=== PATIENT | female | born 2000 | race Two or more races ===

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

== ENCOUNTER → 2025-06-29 | Outpatient (CLI) | payer MEDICAID ==
[2025-06-29 14:32] LABS: Hematocrit 35.9 % (36.0-46.0); Hemoglobin 12.1 g/dL (12.2-16.2); Mean Corpuscular Hemoglobin 31.9 pg (28.0-32.0); Mean Corpuscular Volume 94.7 fL (80.0-100.0); Nucleated Red Blood Cells % 0.0 %
[2025-06-30 16:07] LABS: Chlamydia Trachomatis, NAA Negative (Negative); Neisseria gonorrhoeae, NAA Negative (Negative)
== END | disposition home or self-care (01) ==
LOC: LAB 13:50
PROVIDERS: ATTEND Obstetrics & Gynecology
DX: Z34.83 Encounter for supervision of other normal pregnancy, third trimester (principal); Z11.3 Encounter for screening for infections with a predominantly sexual mode of transmission; Z72.51 High risk heterosexual behavior; Z3A.00 Weeks of gestation of pregnancy not specified
CPT/HCPCS: 36415; 83036; 84144; 84702; 85025; 86703; 86762; 86780; 86850; 86900; 86901; 87086

== ENCOUNTER 2025-07-13 13:44 | Observation (INO) | payer MEDICAID ==
[2025-07-13 15:00] LABS: Hematocrit 34.5 % (36.0-46.0); Hemoglobin 11.7 g/dL (12.2-16.2); Mean Corpuscular Hemoglobin 31.2 pg (28.0-32.0); Mean Corpuscular Volume 92.2 fL (80.0-100.0); Nucleated Red Blood Cells % 0.0 %
--- NOTE | 2025-07-13 15:02 | DVH ---
BIOPHYSICAL PROFILE HISTORY: PIH TECHNIQUE: Multiple transabdominal real-time grayscale sonographic images through the gravid uterus of the fetus with duplex Doppler color flow and M-mode spectral analysis FINDINGS: BIOPHYSICAL PROFILE: breathing score: 2 movement score: 2 tone score: 2 Quantitative SANAZ score: 2 (SANAZ: 12.8 Cm.) Total score: 8 The cervix was not seen Single live fetus in cephalic presentation. heart rate 139 beats per minute. Grade II posterior placenta without previa or abruption IMPRESSION: Biophysical profile score: 8
[2025-07-13 15:15] LABS: Alanine Aminotransferase 11 U/L (7-40); Albumin 3.9 g/dL (3.2-4.8); Anion Gap 9 (5-15); BUN/Creatinine Ratio 13.3 (10.0-20.0); Calcium 8.9 mg/dL (8.7-10.4); Carbon Dioxide 23 mmol/L (20-31); Chloride 106 mmol/L (98-107); Glucose 82 mg/dL (74-106); INR 0.95 (0.9-1.15); Partial Thromboplastin Time 27.3 SEC (24.5-34.5); Potassium 4.1 mmol/L (3.5-5.1); Prothrombin Time 10.1 sec (9.3-11.8); Sodium 138 mmol/L (136-145); Total Protein 6.9 g/dL (5.7-8.2); Uric Acid 3.7 mg/dL (3.1-7.8)
[2025-07-13 15:16] LABS: Bilirubin, Total 0.4 mg/dL (0.2-1.0)
[2025-07-13 15:17] LABS: Alkaline Phosphatase 127 U/L (46-116); Blood Urea Nitrogen 6 mg/dL (9-23)
[2025-07-13] MEDS ORDERED: PREN-96 PO (15:34)
[2025-07-13 16:12] LABS: Urine Protein, UAD TRACE (Negative)
[2025-07-13 16:23] LABS: Protein, Urine 23.7 mg/dL (1-14)
--- NOTE | 2025-07-13 17:49 | DVHDS2 ---
Physician Discharge Progress N Final Diagnosis: ruled out preeclampsia Operations or Procedures: Operations or Procedures 25yo IUP@32.2wks was sent down from Dr. Miramontes's office for rule out preeclampsia/NST/BPP. Denies UCs/LOF/VB/DAVE/vision changes/RUQ pain. Endorses +FM. VSS, normotensive per RN (see CPN) NST reactive per RN BPP 04/29 FKC/PTL/preE precautions reviewed Plan is to f/u in 1 wk with [address] Miramontes consulted, agrees with POC. Laboratory Tests Test 07/13/25 14:46 07/13/25 15:00 Range/Units White Blood Count 7.3 4.4-10.8 10^3/uL Red Blood Count 3.74 L 4.0-5.20 10^6/uL Hemoglobin 11.7 L 12.2-16.2 g/dL Hematocrit 34.5 L 36.0-46.0 % Mean Corpuscular Volume 92.2 80.0-100.0 fL Mean Corpuscular Hemoglobin 31.2 28.0-32.0 pg Mean Corpuscular Hemoglobin Concent 33.8 32.0-36.0 g/dL Red Cell Distribution Width 12.4 11.8-14.3 % Platelet Count 276 140-450 10^3/uL Mean Platelet Volume 7.6 6.9-10.8 fL Neutrophils (%) (Auto) 68.8 37.0-80.0 % Lymphocytes (%) (Auto) 23.7 10.0-50.0 % Monocytes (%) (Auto) 6.4 0.0-12.0 % Eosinophils (%) (Auto) 0.5 0.0-7.0 % Basophils (%) (Auto) 0.6 0.0-2.0 % Neutrophils # (Auto) 5.0 1.6-8.6 10 ^3/uL Lymphocytes # (Auto) 1.7 0.4-5.4 10 ^3/uL Monocytes # (Auto) 0.5 0-1.3 10 ^3/uL Eosinophils # (Auto) 0 0-0.8 10 ^3/uL Basophils # (Auto) 0 0-0.2 10 ^3/uL Nucleated Red Blood Cells 0.0 % Prothrombin Time 10.1 9.3-11.8 sec Prothrombin Time INR 0.95 0.9-1.15 Activated Partial Thromboplast Time 27.3 24.5-34.5 SEC Sodium Level 138 136-145 mmol/L Potassium Level 4.1 3.5-5.1 mmol/L Chloride Level 106 98-107 mmol/L Carbon Dioxide Level 23 20-31 mmol/L Anion Gap 9 5-15 Blood Urea Nitrogen 6 L 9-23 mg/dL Creatinine 0.45 L 0.550-1.02 mg/dL Glomerular Filtration Rate Calc 136 >90 mL/min BUN/Creatinine Ratio 13.3 10.0-20.0 Serum Glucose 82 74-106 mg/dL Uric Acid 3.7 3.1-7.8 mg/dL Calcium Level 8.9 8.7-10.4 mg/dL Total Bilirubin 0.4 0.2-1.0 mg/dL Aspartate Amino Transferase (AST) 18 13-40 U/L Alanine Aminotransferase (ALT) 11 7-40 U/L Alkaline Phosphatase 127 H 46-116 U/L Total Protein 6.9 5.7-8.2 g/dL Albumin 3.9 3.2-4.8 g/dL Urine Color Yellow Yellow Urine Clarity Turbid H Clear Urine pH 6.5 5.0-9.0 Urine Specific [place] 1.022 1.001-1.035 Urine Protein Trace H Negative Urine Ketones Negative Negative Urine Blood Negative Negative /uL Urine Nitrite Negative Negative Urine Bilirubin Negative Negative Urine Urobilinogen Normal Negative mg/dL Urine Leukocyte Esterase 3+ Negative /uL Urine RBC 14 0 - 4 /hpf Urine Microscopic WBC 30 H 0-5 /HPF Urine Squamous Epithelial Cells Mod <5 /hpf Urine Bacteria None seen None Seen /hpf Urine Mucus Few None Seen Urine Creatinine 170.25 H 30.0-125.0 mg/dL Urine Protein/Creatinine Ratio 0.14 Urine Glucose Normal Normal mg/dL Urine Total Protein 23.7 H 1-14 mg/dL Other Interventions Other Interventions [address] [address] Ph: [phone] DIAGNOSTIC IMAGING Diagnostic Imaging Report : [id number] Signed PATIENT: JOSE C SALEH AACCT: [id number] UNIT: [id number] : 2000 LOC: [facility] ROOM / BED: [facility] 11 / A AGE / SEX: 25 / F ADM STATUS: ADM IN SERVICE 1423 ORDERING PHYSICIAN: ANASTACIA MIRAMONTES DO PROCEDURE(s): BPP - BIOPHYSICAL PROFILE REASON: PIH ORDER NUMBER(s): [id number], ACCESSION NUMBER(s): [id number] BIOPHYSICAL PROFILE HISTORY: PI TECHNIQUE: Multiple transabdominal real-time grayscale sonographic images through the gravid uterus of the fetus with duplex Doppler color flow and M-mode spectral analysis FINDINGS: BIOPHYSICAL PROFILE: breathing score: 2 movement score: 2 tone score: 2 Quantitative SANAZ score: 2 (SANAZ: 12.8 Cm.) Total score: 8 The cervix was not seen Single live fetus in cephalic presentation. heart rate 139 beats per minute. Grade II posterior placenta without previa or abruption IMPRESSION: Biophysical profile score: 8 ATED BY: BIMAL MCCOY MD DICTATED DATE/TIME: 07/13/251458 SIGNED BY: BIMAL MCCOY MD SIGNED DATE/TIME: 07/13/259 CC: Condition on Discharge: Stable Disposition: Home Discharge Instructions: Diet: Regular Activity: No Restrictions, As Tolerated Medications: see med list Follow Up Care: Specialist: f/u in 1 wk Discharge Statement: "Patient was advised to return to the ER or call 911 if any headaches, dizziness, shortness of breath, chest pain, abdominal pain, bleeding, fevers, or worsening of medical condition. Patient was counseled about treatment plan, medications, possible side effects, patientverbalized understanding. All questions were answered to the best of my ability. This discharge took greater then 30 minutes in planning, reviewing documentation, counseling the patient, and discussing with other team members." Visit Coding OBGYN Date of Service: Jul 13, 2025 Billing Provider: MARIE POPE CNM TOBACCO GRADER Common Visit Codes: [id number] OBS CARE (HIGH) TOBACCO GRADER Procedure Codes: 78709-88- NON-STRESS TEST MARIE POPE CNM Jul 13, 2025 17:49
== END 2025-07-13 16:47 | disposition home or self-care (01) ==
LOC: UNDOADMOB 13:44 → NUR 13:44 → LDRP 15:16
PROVIDERS: ADMIT Obstetrics & Gynecology; ATTEND Obstetrics & Gynecology
DX: O13.3 Gestational [pregnancy-induced] hypertension without significant proteinuria, third trimester (principal); Z3A.32 32 weeks gestation of pregnancy; Z79.899 Other long term (current) drug therapy; Z98.890 Other specified postprocedural states
CPT/HCPCS: 36415; 59025; 76819; 80053; 81001; 81002; 82570; 84156; 84550; 85025; 85610; 85730; 94760; G0378

== ENCOUNTER 2025-07-20 07:38 | Observation (INO) | payer MEDICAID ==
[~2025-07-20 07:38] MED LIST: PREN-96 PO
[2025-07-20 12:15] LABS: Urine Budding Yeast MANY /hpf (None Seen); Urine Protein, UAD TRACE (Negative); Urine WBC Clumps PRESENT /hpf (None Seen)
[2025-07-20 12:36] LABS: Protein, Urine 16.7 mg/dL (1-14)
--- NOTE | 2025-07-20 13:08 | DVH ---
BIOPHYSICAL PROFILE HISTORY: PIH TECHNIQUE: Multiple real-time grayscale sonographic images through the gravid uterus of the fetus wi th duplex Doppler color flow. FINDINGS: BIOPHYSICAL PROFILE: breathing score: 2 movement score: 2 tone score: 2 Quantitative SANAZ score: 2 Total score: 8 out of 8 Single live intrauterine . Cephalic lie. heart rate 151 beats per minute. Placenta posteriorly positioned. SANAZ 16.3 cm. Cervical length 4.7 cm. IMPRESSION: Biophysical profile score: 8 out of 8
== END 2025-07-20 13:30 | disposition home or self-care (01) ==
LOC: UNDOADMOB 11:00 → LDRP 11:00
PROVIDERS: ADMIT Obstetrics & Gynecology; ATTEND Obstetrics & Gynecology
DX: O13.3 Gestational [pregnancy-induced] hypertension without significant proteinuria, third trimester (principal); Z3A.33 33 weeks gestation of pregnancy; Z79.899 Other long term (current) drug therapy; Z98.890 Other specified postprocedural states
CPT/HCPCS: 59025; 76819; 81001; 81002; 82570; 84156; 94760; G0378

== ENCOUNTER 2025-07-27 07:43 | Observation (INO) | payer MEDICAID ==
[2025-07-27 14:47] LABS: Urine Protein, UAD Negative (Negative)
[2025-07-27 15:11] LABS: Protein, Urine 14.6 mg/dL (1-14)
[2025-07-27 16:11] LABS: Protein, Urine < 6.0 mg/dL (1-14)
[2025-07-27 16:12] LABS: Urine Total Volume, 24 Hours 2200 mL
[2025-07-27 16:13] LABS: 24 Hr. Total Protein, Urine 131.99978 mg/24 Hr (<149.1)
--- NOTE | 2025-07-27 17:11 | DVH ---
BIOPHYSICAL PROFILE HISTORY: PIH TECHNIQUE: FINDINGS: BIOPHYSICAL PROFILE: breathing score: 0 movement score: 2 tone score: 3 Quantitative SANAZ score: 3 (SANAZ: 17.4 cm, MVP: 6.2 cm.) Total score: 6/8 The cervix obscured by head Single live fetus in cephalic presentation. heart rate 144 beats per minute. Posterior Grade 1 placenta without previa or abruption Single live fetus at 34 weeks 2 days Biophysical profile score 6/8 corresponding to an KIM of 09/05/2025 IMPRESSION: 1. Biophysical profile score: 6/8. 2. Possible nuchal cord
[2025-07-28] MEDS ORDERED: NITR-87 PO (15:16)
--- NOTE | 2025-07-29 14:11 | DVHDS2 ---
Physician Discharge Progress N Final Diagnosis: uti Operations or Procedures: Operations or Procedures nst reactive reviwed Condition on Discharge: Good Disposition: Home Discharge Instructions: Diet: Regular, Consistent carbohydrate Activity: No Restrictions, As Tolerated Medications: na Follow Up Care: Specialist: 3d Discharge Statement: "Patient was advised to return to the ER or call 911 if any headaches, dizziness, shortness of breath, chest pain, abdominal pain, bleeding, fevers, or worsening of medical condition. Patient was counseled about treatment plan, medications, possible side effects, patientverbalized understanding. All questions were answered to the best of my ability. This discharge took greater then 30 minutes in planning, reviewing documentation, counseling the patient, and discussing with other team members." Visit Coding OBGYN Date of Service: Jul 27, 2025 Billing Provider: ANASTACIA WALL DO SYSTEMS ADMIN Common Visit Codes: [id number] OBS CARE (HIGH) SYSTEMS ADMIN Procedure Codes: 25363-33- NON-STRESS TEST ANASTACIA WALL DO Jul 29, 2025 14:11
== END 2025-07-27 16:11 | disposition home or self-care (01) ==
LOC: LDRP 14:08 → UNDOADMOB 14:08 → LDRP 14:20
PROVIDERS: ADMIT Obstetrics & Gynecology; ATTEND Obstetrics & Gynecology
DX: O13.3 Gestational [pregnancy-induced] hypertension without significant proteinuria, third trimester (principal); Z3A.34 34 weeks gestation of pregnancy; Z98.890 Other specified postprocedural states
CPT/HCPCS: 59025; 76819; 81001; 81002; 82570; 84156; 94760; G0378

== ENCOUNTER 2025-07-28 14:13 | Observation (INO) | payer MEDICAID ==
--- NOTE | 2025-07-28 14:52 | DVH ---
BIOPHYSICAL PROFILE HISTORY: Repeat BPP 02/27 on 07/27/25 Comparison Study: US BIOPHYSICAL PROFILE on DOS: 07/27/25, US BIOPHYSICAL PROFILE on DOS: 07/20/25, US BIOPHYSICAL PROFILE on DOS: 07/13/25 TECHNIQUE: Multiple real-time grayscale sonographic images through the gravid uterus of the fetus with duplex Doppler color flow and M-mode spectral analysis FINDINGS: BIOPHYSICAL PROFILE: breathing score: 2 movement score: 2 tone score: 2 Quantitative SANAZ score: 16.58 (SANAZ: 16.58 Cm.) Total score: 8 The cervix is not visualized Single live fetus in cephalic presentation. heart rate 128 beats per minute. Grade 2, posterior placenta without previa or abruption IMPRESSION: Biophysical profile score: 8
[2025-07-28] MEDS ORDERED: NITR-87 PO (15:16)
--- NOTE | 2025-07-29 14:40 | DVHDS2 ---
Physician Discharge Progress N Final Diagnosis: r/o pih 34wks Operations or Procedures: Operations or Procedures nst reactive reviwed,sono Condition on Discharge: Good Disposition: Home Discharge Instructions: Diet: Regular Activity: No Restrictions, As Tolerated Medications: na Follow Up Care: Specialist: 3d Discharge Statement: "Patient was advised to return to the ER or call 911 if any headaches, dizziness, shortness of breath, chest pain, abdominal pain, bleeding, fevers, or worsening of medical condition. Patient was counseled about treatment plan, medications, possible side effects, patientverbalized understanding. All questions were answered to the best of my ability. This discharge took greater then 30 minutes in planning, reviewing docume ntation, counseling the patient, and discussing with other team members." Visit Coding OBGYN Date of Service: Jul 28, 2025 Billing Provider: ANASTACIA WALL DO LITHOGRAPHIC PROOFER Common Visit Codes: [id number] OBS CARE (HIGH) LITHOGRAPHIC PROOFER Procedure Codes: 99227-50- NON-STRESS TEST ANASTACIA WALL DO Jul 29, 2025 14:40
== END 2025-07-28 15:30 | disposition home or self-care (01) ==
LOC: LDRP 14:13 → UNDOADMOB 14:13 → LDRP 14:15
PROVIDERS: ADMIT Obstetrics & Gynecology; ATTEND Obstetrics & Gynecology
DX: O13.3 Gestational [pregnancy-induced] hypertension without significant proteinuria, third trimester (principal); Z3A.34 34 weeks gestation of pregnancy; Z98.890 Other specified postprocedural states
CPT/HCPCS: 59025; 76819; 81002; 94760; G0378

== ENCOUNTER 2025-08-03 08:58 | Observation (INO) | payer MEDICAID ==
[~2025-08-03 08:58] MED LIST changes: +NITR-87 PO
--- NOTE | 2025-09-05 12:36 | DVH ---
BIOPHYSICAL PROFILE HISTORY: term TECHNIQUE: Multiple transabdominal real-time grayscale sonographic images through the gravid uterus of the fetus with duplex Doppler color flow and M-mode spectral analysis FINDINGS: BIOPHYSICAL PROFILE: breathing score: 2 movement score: 2 tone score: 2 Quantitative SANAZ score: 2 (SANAZ: 15.8 cm, mvp: 4.5 cm.) Total score: 8/8 The cervix N/V Single live fetus in cephalic presentation. heart rate 148 beats per minute. Posterior Grade 2 placenta without previa or abruption Single live fetus at 40 weeks 0 days Biophysical profile score 8/8 corresponding to an KIM of 09/05/2025. Estimated weight not calculated g IMPRESSION: 1. Biophysical profile score: 8/8 2. FHR: 148 bpm
== END 2025-09-05 12:28 | disposition home or self-care (01) ==
LOC: UNDOADMOB 09-05 10:36 → LDRP 09-05 10:36 → UNDODISOB 09-05 12:28
PROVIDERS: ADMIT Obstetrics & Gynecology; ATTEND Obstetrics & Gynecology
DX: O48.0 Post-term pregnancy (principal); Z3A.40 40 weeks gestation of pregnancy; Z79.899 Other long term (current) drug therapy
CPT/HCPCS: 59025; 76819; 81002; 94760; A4649; G0378

== ENCOUNTER 2025-08-23 14:39 | Outpatient (CLI) | payer MEDICAID ==
[2025-08-23 15:25] LABS: Hematocrit 32.3 % (36.0-46.0); Hemoglobin 10.8 g/dL (12.2-16.2); Mean Corpuscular Hemoglobin 29.7 pg (28.0-32.0); Mean Corpuscular Volume 88.7 fL (80.0-100.0); Nucleated Red Blood Cells % 0.1 %
[2025-08-25 03:07] LABS: Chlamydia Trachomatis, NAA Negative (Negative); Neisseria gonorrhoeae, NAA Negative (Negative)
== END 2025-08-23 17:00 | disposition home or self-care (01) ==
LOC: LAB 14:39
PROVIDERS: ATTEND Obstetrics & Gynecology
DX: Z34.80 Encounter for supervision of other normal pregnancy, unspecified trimester (principal); Z11.3 Encounter for screening for infections with a predominantly sexual mode of transmission; Z72.51 High risk heterosexual behavior; Z3A.00 Weeks of gestation of pregnancy not specified
CPT/HCPCS: 36415; 85025; 86780; 87086; 87340

== ENCOUNTER 2025-09-06 07:52 | Inpatient (IN) | payer MEDICAID ==
[~2025-09-06] VITALS: Ht 165.1 cm; Wt 77.1 kg
[2025-09-06] MEDS ORDERED: LIDOCAINE 2%HCL (LOCAL ANESTH.) INJ 20ML MDV IJ PRN (08:15)
[2025-09-06] MEDS ORDERED: BUTORPHANOL TARTRATE 2 MG/1 ML VIAL IV PRN ×2 (08:15)
[2025-09-06 09:06] LABS: Hematocrit 32.4 % (36.0-46.0); Hemoglobin 10.6 g/dL (12.2-16.2); Mean Corpuscular Hemoglobin 28.8 pg (28.0-32.0); Mean Corpuscular Volume 87.9 fL (80.0-100.0); Nucleated Red Blood Cells % 0.1 %
[2025-09-06 09:20] LABS: INR 0.91 (0.9-1.15); Partial Thromboplastin Time 25.4 SEC (24.5-34.5); Prothrombin Time 9.7 sec (9.3-11.8)
[2025-09-06 09:25] LABS: Alanine Aminotransferase 17 U/L (7-40); Albumin 3.6 g/dL (3.2-4.8); Anion Gap 10 (5-15); BUN/Creatinine Ratio 11.1 (10.0-20.0); Calcium 8.9 mg/dL (8.7-10.4); Carbon Dioxide 21 mmol/L (20-31); Chloride 107 mmol/L (98-107); Glucose 82 mg/dL (74-106); Potassium 4.0 mmol/L (3.5-5.1); Sodium 138 mmol/L (136-145); Total Protein 6.4 g/dL (5.7-8.2)
[2025-09-06] MEDS: LACTATED RINGER'S 1,000 ML IV SCH (09:25)
[2025-09-06 09:26] LABS: Bilirubin, Total 0.4 mg/dL (0.2-1.0)
--- NOTE | 2025-09-06 09:27 | DVHHP2 ---
OB CC & HPI Date Date of Admission: Sep 06, 2025 Patient Identification: : 2 Para: 1 EDC: Sep 05, 2025 EGA: 40.1wks Chief Complaints: Reason for admission: induction of labor Indication for induction: other (term ) History of Present Complaints 25yo IUP@40.1wks presents for IOL for term . Wants an epidural later. Endorses +FM. Denies uterine contractions/LOF/VB/DAVE/vision changes/RUQ pain. PNC: Routine PNC at [facility] OB with Dr. Miramontes, adequate visits, history uncomplicated. GTT was not done by pt, Hg and A1C WNL. GBS neg. Dating 09/05 by US at 24wks. OB hx: x1, uncomplicated in 2022. Past Medical History Cardiac: No pertinent Hx Pulmonary: No pertinent Hx Central Nervous System: No pertinent Hx GI: No pertinent Hx Hemotology/Oncology: No pertinent Hx Hepatobiliary: No pertinent Hx Psychiatric: No pertinent Hx Musculoskeletal: No pertinent Hx Rheumotologic: No pertinent Hx Infectious Disease: No peritnent Hx ENT: No pertinent Hx Renal/: No pertinent Hx Endocrine: No pertinent Hx Dermatology: No pertinent Hx Past Surgical History: Other (Breast augmentation in 2021) OB History OB History Care: Good Care Ultrasounds: Normal mid trimester US Obstetrical Complications: None Medical Complications: None Allergies: Coded Allergies: NO KNOWN ALLERGIES (Unverified , 03/11/12) Home Meds Reported Medications Nitrofurantoin Monohydrate Mac (Macrobid) 100 Mg Cap, 100 MG PO BID for 7 Days, CAP 07/28/25 Vit W/ Ferrous Fumara ( One Daily) Daily Tab, 1 TAB PO DAILY, #90 TAB 3 Refills 07/13/25 Current Medications Current Medications Medications (Trade) Dose Ordered Sig/Jocelynn Route PRN Reason Start Time Stop Time Status Last Admin Lactated Ringer's 1,000 ml @ 125 mls/hr Q8H IV 09/06/25 08:15 Niya Santana (Tucks) 1 pad PRN PRN TOP PERINEAL AREA DISCOMFORT 09/06/25 08:15 Sodium Lauryl Sulfate (Phisoderm) 240 ml PRN PRN TOP PERINEAL AREA DISCOMFORT 09/06/25 08:15 Benzocaine (Dermoplast) 1 applic PRN PRN TOP PERINEAL AREA DISCOMFORT 09/06/25 08:15 Butorphanol Tartrate (Stadol Injection) 1 mg Q4HPRN PRN IV MODERATE PAIN (4-6 PAIN SCALE) 09/06/25 08:15 Butorphanol Tartrate (Stadol Injection) 2 mg Q4HPRN PRN IV SEVERE PAIN (7-10 PAIN SCALE) 09/06/25 08:15 Lidocaine HCl (Xylocaine) 20 ml ONCE PRN IJ PERINEAL AREA DISCOMFORT 09/06/25 08:15 Family & Social History Family/Social History Blood Type: O+ Rubella: immune RPR/VDRL: Negative GBS Status: Negative HBsAG: Negative Review of Systems Constitutional: No symptom reported Ears, Nose, & Throat: No symptom reported Eyes: No symptom reported Pulmonary/Respiratory: No symptom reported Cardiovascular: No symptom reported Gastrointestinal: No symptom reported Genitourinary: No symptom reported Musculoskeletal: No symptom reported Skin: No symptom reported Psychiatric: No symptom reported Endocrine: No symptom reported Hemotologic/Lymphatic: No symptom reported OB Admission Exam Physical Exam Vitals: VSS, see chart EFW 7lbs 2oz vertex in office on 08/30/25 HEENT: TMs Normal, Fontanelles Normal, Nasal Mucosa Normal, Eyes non-injected, Oropharynx Normal, PERRLA, Moist Membranes, EOMI Heart: Rhythm Normal Lungs: Clear Abdomen: Gravid Extremities: Normal Reflexes: Normal Pelvic Exam: SVE by RN: 1/thick/-3 Cervical Dilatation: 1cm Effacement: 0% Station: -3 Membranes: Intact Heart Rate: 130's Accelerations: Accelerations Present Decelerations: No Decelerations Penitentiary Variability: Average (6-25) Contractions on Admission: None OB Plan Plan Admitting Diagnosis: Induction of Labor Plan: Induction Induction Methd: Misoprostol protocol Other Plan: A: 25yo IUP@40.1wks Induction of Labor for term Category I EFM Intact Membranes GBS negative P: Admit to L&D Informed consent obtained Start IOL with PO Cytotec 50mcg PO. Pt agrees with POC. monitoring per order Routine labs ordered Pain mgmt PRN Frequent position changes in and out of bed encouraged Limit SVE unless necessary Intrauterine resuscitation PRN Anticipate Visit Coding OBGYN Date of Service: Sep 06, 2025 Billing Provider: MARIE POPE CNM MANAGER SPECIAL EVENTS Common Visit Codes: [id number] INP/OBS CARE (MOD) MANAGER SPECIAL EVENTS Procedure Codes: 23428-91- NON-STRESS TEST MARIE POPE CNM Sep 06, 2025 09:27
[2025-09-06 09:31] LABS: Alkaline Phosphatase 219 U/L (46-116); Blood Urea Nitrogen 7 mg/dL (9-23)
[2025-09-06] MEDS: WITCH HAZEL-GLYCERIN PAD TOP PRN (09:58)
[2025-09-06] MEDS: PHISODERM TOP SOLN 240ML BTL TOP PRN (09:58)
[2025-09-06] MEDS: DERMOPLAST 60ML BOTTLE TOP PRN (09:59)
[2025-09-06] MEDS: ONDANSETRON HCL 4 MG/2 ML VIAL IV PRN (11:33)
[2025-09-06 11:58] LABS: Urine Protein, UAD TRACE (Negative)
[2025-09-06 11:59] LABS: Amphetamine Screen, Urine Neg (NEGATIVE); Barbiturate Scree,Urine Neg (NEGATIVE); Benzodiazephine Screen, Urine Neg (NEGATIVE); Cocaine Screen, Urine Neg (NEGATIVE)
[2025-09-06 12:00] LABS: Cannabinoid Screen, Urine Neg (NEGATIVE); Opiate Scree,Urine Neg (NEGATIVE); Phencyclidine Screen, Urine Neg (NEGATIVE)
--- NOTE | 2025-09-06 18:37 | DVHPN2 ---
OB Labor Progress Note Date and Time Seen Date Seen: Sep 13, 2025 Time Seen: 16:00 Subjective Patient reports: No new complaints Subjective Comment 25yo IUP@40.1wks, Confirms mild uterine contractions. does not want the epidural yet. Objective Vital Signs VSS WNL see cpn Monitoring Method Monitoring Method: External Heart Rate Heart Rate Baseline: 145 Heart Rate Variability: Moderate Presence of FHR Accelerations: Yes Presence of FHR Decelerations: No Changes in Trends of Patterns: No Are all 5 Components of the FH: Yes Contractions Contractions Frequency: Occasional Duration of Contraction: 70 Contractions Intensity: Moderate Contractions Resting Tone: Relaxed Membranes Membranes: Intact Vaginal Exam Vag Exam Deferred: No Vaginal Exam Dilation: 3 (VE Per RN) Vaginal Exam Effacement: 50 Vaginal Exam Station: -3 Vaginal Exam Presentation: VTX Vaginal Exam Show: Small Medications Medications - Pitocin: No Medications - Pain Medications: PRN Medication - Epidural: No Medication - Other S/P 3 doses of cytotec Lab Results Lab Results Current Medications Medications (Trade) Dose Ordered Sig/Jocelynn Start Time Stop Time Status Last Admin Dose Admin Lactated Ringer's 1,000 ml @ 125 mls/hr Q8H 09/06/25 08:15 09/06/25 17:25 125 MLS/HR Witch Esther (Tucks) 1 pad PRN PRN 09/06/25 08:15 09/06/25 09:58 1 PAD Sodium Lauryl Sulfate (Phisoderm) 240 ml PRN PRN 09/06/25 08:15 09/06/25 09:58 240 ML Benzocaine (Dermoplast) 1 applic PRN PRN 09/06/25 08:15 09/06/25 09:59 1 APPLIC Butorphanol Tartrate (Stadol Injection) 1 mg Q4HPRN PRN 09/06/25 08:15 Butorphanol Tartrate (Stadol Injection) 2 mg Q4HPRN PRN 09/06/25 08:15 Lidocaine HCl (Xylocaine) 20 ml ONCE PRN 09/06/25 08:15 Misoprostol (Cytotec) 50 mcg Q4HPRN PRN 09/06/25 09:30 09/06/25 18:00 50 MCG Oxytocin 500 ml @ 999 mls/hr Q31M ONCE 09/06/25 09:30 09/06/25 10:00 DC Oxytocin 500 ml @ 125 mls/hr Q4H ONCE 09/06/25 10:00 09/06/25 13:59 DC Ondansetron HCl (Zofran) 4 mg Q6HPRN PRN 09/06/25 11:30 09/06/25 11:33 4 MG Laboratory Tests Test 09/06/25 08:45 09/06/25 08:00 Range/Units White Blood Count 7.3 4.4-10.8 10^3/uL Red Blood Count 3.69 L 4.0-5.20 10^6/uL Hemoglobin 10.6 L 12.2-16.2 g/dL Hematocrit 32.4 L 36.0-46.0 % Mean Corpuscular Volume 87.9 80.0-100.0 fL Mean Corpuscular Hemoglobin 28.8 28.0-32.0 pg Mean Corpuscular Hemoglobin Concent 32.7 32.0-36.0 g/dL Red Cell Distribution Width 13.3 11.8-14.3 % Platelet Count 237 140-450 10^3/uL Mean Platelet Volume 8.8 6.9-10.8 fL Neutrophils (%) (Auto) 68.2 37.0-80.0 % Lymphocytes (%) (Auto) 25.9 10.0-50.0 % Monocytes (%) (Auto) 5.0 0.0-12.0 % Eosinophils (%) (Auto) 0.4 0.0-7.0 % Basophils (%) (Auto) 0.5 0.0-2.0 % Neutrophils # (Auto) 5.0 1.6-8.6 10 ^3/uL Lymphocytes # (Auto) 1.9 0.4-5.4 10 ^3/uL Monocytes # (Auto) 0.4 0-1.3 10 ^3/uL Eosinophils # (Auto) 0 0-0.8 10 ^3/uL Basophils # (Auto) 0 0-0.2 10 ^3/uL Nucleated Red Blood Cells 0.1 % Prothrombin Time 9.7 9.3-11.8 sec Prothrombin Time INR 0.91 0.9-1.15 Activated Partial Thromboplast Time 25.4 24.5-34.5 SEC Sodium Level 138 136-145 mmol/L Potassium Level 4.0 3.5-5.1 mmol/L Chloride Level 107 98-107 mmol/L Carbon Dioxide Level 21 20-31 mmol/L Anion Gap 10 5-15 Blood Urea Nitrogen 7 L 9-23 mg/dL Creatinine 0.63 0.550-1.02 mg/dL Glomerular Filtration Rate Calc 125 >90 mL/min BUN/Creatinine Ratio 11.1 10.0-20.0 Serum Glucose 82 74-106 mg/dL Calcium Level 8.9 8.7-10.4 mg/dL Total Bilirubin 0.4 0.2-1.0 mg/dL Aspartate Amino Transferase (AST) 22 13-40 U/L Alanine Aminotransferase (ALT) 17 7-40 U/L Alkaline Phosphatase 219 H 46-116 U/L Total Protein 6.4 5.7-8.2 g/dL Albumin 3.6 3.2-4.8 g/dL Treponema pallidum Antibody Non-reactive Negative Hepatitis C Antibody Negative Negative Urine Color Colorless Yellow Urine Clarity Turbid H Clear Urine pH 6.5 5.0-9.0 Urine Specific [place] 1.020 1.001-1.035 Urine Protein Trace H Negative Urine Ketones Negative Negative Urine Blood Trace H Negative /uL Urine Nitrite Negative Negative Urine Bilirubin Negative Negative Urine Urobilinogen Normal Negative mg/dL Urine Leukocyte Esterase 3+ Negative /uL Urine RBC 5 0 - 4 /hpf Urine Microscopic WBC 160 H 0-5 /HPF Urine Squamous Epithelial Cells Mod <5 /hpf Urine Bacteria Mod H None Seen /hpf Urine Mucus Few None Seen Urine Glucose Normal Normal mg/dL Urine Opiates Screen Neg NEGATIVE Urine Fentanyl Screen Neg NEGATIVE Urine Barbiturates Screen Neg NEGATIVE Urine Phencyclidine Screen Neg NEGATIVE Urine Amphetamines Screen Neg NEGATIVE Urine Benzodiazepines Screen Neg NEGATIVE Urine Cocaine Screen Neg NEGATIVE Urine Cannabinoids Screen Neg NEGATIVE Assessment Assessment A: 25yo IUP@40.1wks Induction of Labor for term Category I EFM Intact Membranes GBS negative Plan Plan P: Continue with IOL with PO Cytotec 50mcg PO. Pt agrees with POC. monitoring per order Pain mgmt PRN Frequent position changes in and out of bed encouraged Limit SVE unless necessary Intrauterine resuscitation PRN Anticipate Plan discussed with: Patient Visit Coding OBGYN Date of Service: Sep 06, 2025 Billing Provider: KALAYDJIAN,AZADUHI CNM DEVELOPING MACHINE TENDER Common Visit Codes: [id number] INP/OBS CARE(MOD) AGUILAR HUFF STUDENTMDW Sep 06, 2025 18:37
[2025-09-06] MEDS: NALOXONE HCL 0.4 MG/ML VIAL IV ONE (19:45)
[2025-09-06] MEDS: LACTATED RINGER'S 1,000 ML IV ONE (22:30)
[2025-09-06] MEDS: fentaNYL CITRATE 100 MCG/2 ML VL IV ONE (22:30)
[2025-09-06] MEDS: ROPIVACAINE HCL 100 ML ONE (22:36)
--- NOTE | 2025-09-06 22:42 | EPIDURAL ---
Anesthesia Procedural Note - Epidural Informed consent obtained?: Yes Medication Administered: Fentanyl 100 mcg Sterile prept drape: Yes Spinal level of insertion: L4-L5 Test dose of lidocaine & Epine: Negative Infusion started: Yes Start time: 21:40 End time: 22:25 Procedure description Procedure description: Called for labor analgesia. History taken, patient examined, chart reviewed. Patient is here for induction of labor. She had an epidural for her last delivery which was unilateral and she was very anxious about that happening again. I reassured her that if her epidural was not functioning properly, I would replace it. Informed consent for CSE obtained at 2140. Upon examining her back, there is some degree of curvature of the spine. Time out done at 2148 (BP 130/62 HR 90 spO2 98). Sitting position, sterile prep and drape. L4-5 space infiltrated with 1% lido. Attempt at epidural needle placement was meet with the patient reporting pain to the right. Additional 1% lido was infiltrated about half an inch to the left and epidural needle was placed with JAIR at 6cm. 25G spinal needle +clear CSF at 2205 (BP 131/83 HR 86 spO2 99). 15 mcg fentanyl given IT. Epidural catheter placed and secured at 12cm. Aspiration and test dose (3cc 1.5% lido with epi) negative at 2206 (BP 118/63 HR 87 spO2 99). 85 mcg fentanyl given via epidural catheter at 2208. Patient reports good pain relief. 0.2% ropivacaine infusion verified with RN and started at 2218 (BP 115/79 HR 75 spO2 99). Will follow as needed. MEGA ABEBE MD Sep 06, 2025 22:42
[2025-09-06] MEDS ORDERED: TERBUTALINE SULFATE 1 MG/ML 1ML VIAL SC PRN (22:45)
--- NOTE | 2025-09-06 23:12 | DVHPN2 ---
OB Labor Progress Note Date and Time Seen Date Seen: Sep 06, 2025 Time Seen: 21:00 Subjective Patient reports: No new complaints Subjective Comment 25yo IUP@40.1wks, Confirms mild uterine contractions, would like epidural at this time. Objective Vital Signs VSS wnl see cpn Monitoring Method Monitoring Method: External Heart Rate Heart Rate Baseline: 140 Heart Rate Variability: Moderate Presence of FHR Accelerations: Yes Presence of FHR Decelerations: No Changes in Trends of Patterns: No Are all 5 Components of the FH: Yes Contractions Contractions Frequency: Occasional Duration of Contraction: 60 Contractions Intensity: Mild Contractions Resting Tone: Relaxed Membranes Membranes: Intact Vaginal Exam Vag Exam Deferred: No Vaginal Exam Dilation: 3 Vaginal Exam Effacement: 50 Vaginal Exam Station: -2 Vaginal Exam Presentation: VTX Vaginal Exam Show: None Medications Medications - Pitocin: No Medication - Epidural: No Medication - Other See med sheet Lab Results Lab Results Vital Signs Date Time Temp Pulse Resp B/P (MAP) Pulse Ox O2 Delivery O2 Flow Rate FiO2 09/06/25 22:30 118/63 Current Medications Medications (Trade) Dose Ordered Sig/Jocelynn Start Time Stop Time Status Last Admin Dose Admin Lactated Ringer's 1,000 ml @ 125 mls/hr Q8H 09/06/25 08:15 09/06/25 22:30 125 MLS/HR Niya Santana (Tucks) 1 pad PRN PRN 09/06/25 08:15 09/06/25 09:58 1 PAD Sodium Lauryl Sulfate (Phisoderm) 240 ml PRN PRN 09/06/25 08:15 09/06/25 09:58 240 ML Benzocaine (Dermoplast) 1 applic PRN PRN 09/06/25 08:15 09/06/25 09:59 1 APPLIC Butorphanol Tartrate (Stadol Injection) 1 mg Q4HPRN PRN 09/06/25 08:15 Butorphanol Tartrate (Stadol Injection) 2 mg Q4HPRN PRN 09/06/25 08:15 Lidocaine HCl (Xylocaine) 20 ml ONCE PRN 09/06/25 08:15 Misoprostol (Cytotec) 50 mcg Q4HPRN PRN 09/06/25 09:30 09/06/25 18:00 50 MCG Oxytocin 500 ml @ 999 mls/hr Q31M ONCE 09/06/25 09:30 09/06/25 10:00 DC Oxytocin 500 ml @ 125 mls/hr Q4H ONCE 09/06/25 10:00 09/06/25 13:59 DC Ondansetron HCl (Zofran) 4 mg Q6HPRN PRN 09/06/25 11:30 09/06/25 11:33 4 MG Naloxone HCl (Narcan) 0.2 mg PRN ONCE 09/06/25 19:45 09/06/25 19:52 DC Ephedrine Sulfate (ePHEDrine SULFATE) 10 mg PRN ONCE 09/06/25 19:45 09/06/25 19:52 DC Fentanyl Citrate 100 mcg ONCE ONCE 09/06/25 19:45 09/06/25 19:52 DC 09/06/25 22:30 100 MCG Lidocaine HCl (Xylocaine-Pf 2% Injection) 10 ml ONCE ONCE 09/06/25 19:45 09/06/25 19:52 DC Lactated Ringer's 1,000 ml @ 1,000 mls/hr Q1H ONCE 09/06/25 19:45 09/06/25 20:44 DC 09/06/25 22:30 1,000 MLS/HR Oxytocin 1,000 ml @ 6 ml/hr Q24H 09/06/25 22:45 Terbutaline Sulfate (Brethine Inj) 0.25 mg ONCE PRN 09/06/25 22:45 Laboratory Tests Test 09/06/25 08:45 09/06/25 08:00 Range/Units White Blood Count 7.3 4.4-10.8 10^3/uL Red Blood Count 3.69 L 4.0-5.20 10^6/uL Hemoglobin 10.6 L 12.2-16.2 g/dL Hematocrit 32.4 L 36.0-46.0 % Mean Corpuscular Volume 87.9 80.0-100.0 fL Mean Corpuscular Hemoglobin 28.8 28.0-32.0 pg Mean Corpuscular Hemoglobin Concent 32.7 32.0-36.0 g/dL Red Cell Distribution Width 13.3 11.8-14.3 % Platelet Count 237 140-450 10^3/uL Mean Platelet Volume 8.8 6.9-10.8 fL Neutrophils (%) (Auto) 68.2 37.0-80.0 % Lymphocytes (%) (Auto) 25.9 10.0-50.0 % Monocytes (%) (Auto) 5.0 0.0-12.0 % Eosinophils (%) (Auto) 0.4 0.0-7.0 % Basophils (%) (Auto) 0.5 0.0-2.0 % Neutrophils # (Auto) 5.0 1.6-8.6 10 ^3/uL Lymphocytes # (Auto) 1.9 0.4-5.4 10 ^3/uL Monocytes # (Auto) 0.4 0-1.3 10 ^3/uL Eosinophils # (Auto) 0 0-0.8 10 ^3/uL Basophils # (Auto) 0 0-0.2 10 ^3/uL Nucleated Red Blood Cells 0.1 % Prothrombin Time 9.7 9.3-11.8 sec Prothrombin Time INR 0.91 0.9-1.15 Activated Partial Thromboplast Time 25.4 24.5-34.5 SEC Sodium Level 138 136-145 mmol/L Potassium Level 4.0 3.5-5.1 mmol/L Chloride Level 107 98-107 mmol/L Carbon Dioxide Level 21 20-31 mmol/L Anion Gap 10 5-15 Blood Urea Nitrogen 7 L 9-23 mg/dL Creatinine 0.63 0.550-1.02 mg/dL Glomerular Filtration Rate Calc 125 >90 mL/min BUN/Creatinine Ratio 11.1 10.0-20.0 Serum Glucose 82 74-106 mg/dL Calcium Level 8.9 8.7-10.4 mg/dL Total Bilirubin 0.4 0.2-1.0 mg/dL Aspartate Amino Transferase (AST) 22 13-40 U/L Alanine Aminotransferase (ALT) 17 7-40 U/L Alkaline Phosphatase 219 H 46-116 U/L Total Protein 6.4 5.7-8.2 g/dL Albumin 3.6 3.2-4.8 g/dL Treponema pallidum Antibody Non-reactive Negative Hepatitis C Antibody Negative Negative Urine Color Colorless Yellow Urine Clarity Turbid H Clear Urine pH 6.5 5.0-9.0 Urine Specific [place] 1.020 1.001-1.035 Urine Protein Trace H Negative Urine Ketones Negative Negative Urine Blood Trace H Negative /uL Urine Nitrite Negative Negative Urine Bilirubin Negative Negative Urine Urobilinogen Normal Negative mg/dL Urine Leukocyte Esterase 3+ Negative /uL Urine RBC 5 0 - 4 /hpf Urine Microscopic WBC 160 H 0-5 /HPF Urine Squamous Epithelial Cells Mod <5 /hpf Urine Bacteria Mod H None Seen /hpf Urine Mucus Few None Seen Urine Glucose Normal Normal mg/dL Urine Opiates Screen Neg NEGATIVE Urine Fentanyl Screen Neg NEGATIVE Urine Barbiturates Screen Neg NEGATIVE Urine Phencyclidine Screen Neg NEGATIVE Urine Amphetamines Screen Neg NEGATIVE Urine Benzodiazepines Screen Neg NEGATIVE Urine Cocaine Screen Neg NEGATIVE Urine Cannabinoids Screen Neg NEGATIVE Assessment Assessment A: 25yo IUP@40.1wks Induction of Labor for term Category I EFM Intact Membranes GBS negative Plan Plan P: Start IV pitocin per order. monitoring per order Frequent position changes in bed encouraged Limit SVE unless necessary Intrauterine resuscitation PRN Anticipate Plan discussed with: Patient, Spouse Visit Coding OBGYN Date of Service: Sep 06, 2025 Billing Provider: MARIE POPE CNM [employer] Common Visit Codes: [id number] INP/OBS CARE(MOD) [employer] Procedure Codes: 23219-93- NON-STRESS TEST AGUILAR HUFF Sep 06, 2025 23:12
--- NOTE | 2025-09-06 23:56 | DVHPN2 ---
CNM Labor Progress Note Date and Time Seen Date Seen: Sep 06, 2025 Time Seen: 23:43 Subjective Patient reports: Feels better Subjective Comment Pt is comfortable with epidural, denies pain. Pt consents to Cooks CRB after discussion. Objective Vital Signs VSS, see CPN Monitoring Method Monitoring Method: External Heart Rate Heart Rate Baseline: 130 Heart Rate Variability: Moderate Presence of FHR Accelerations: Yes Presence of FHR Decelerations: No Changes in Trends of Patterns: No Are all 5 Components of the FH: Yes Contractions Contractions Frequency: Other (q2) Duration of Contraction: 70 Contractions Intensity: Moderate Contractions Resting Tone: Relaxed Membranes Membranes: Intact Vaginal Exam Vag Exam Deferred: No (cooks CRB placed by Opal PERRY with 60/60ml sterile fluid) Vaginal Exam Dilation: 4 Vaginal Exam Effacement: 50 Vaginal Exam Station: -2 Vaginal Exam Presentation: VTX Vaginal Exam Show: Moderate Medications Medications - Pitocin: No Medication - Epidural: Yes Medication - Other see med list Lab Results Lab Results Vital Signs Date Time Temp Pulse Resp B/P (MAP) Pulse Ox O2 Delivery O2 Flow Rate FiO2 09/06/25 22:30 118/63 Current Medications Medications (Trade) Dose Ordered Sig/Jocelynn Start Time Stop Time Status Last Admin Dose Admin Lactated Ringer's 1,000 ml @ 125 mls/hr Q8H 09/06/25 08:15 09/06/25 22:30 125 MLS/HR Witch Esther (Tucks) 1 pad PRN PRN 09/06/25 08:15 09/06/25 09:58 1 PAD Sodium Lauryl Sulfate (Phisoderm) 240 ml PRN PRN 09/06/25 08:15 09/06/25 09:58 240 ML Benzocaine (Dermoplast) 1 applic PRN PRN 09/06/25 08:15 09/06/25 09:59 1 APPLIC Butorphanol Tartrate (Stadol Injection) 1 mg Q4HPRN PRN 09/06/25 08:15 Butorphanol Tartrate (Stadol Injection) 2 mg Q4HPRN PRN 09/06/25 08:15 Lidocaine HCl (Xylocaine) 20 ml ONCE PRN 09/06/25 08:15 Misoprostol (Cytotec) 50 mcg Q4HPRN PRN 09/06/25 09:30 09/06/25 18:00 50 MCG Oxytocin 500 ml @ 999 mls/hr Q31M ONCE 09/06/25 09:30 09/06/25 10:00 DC Oxytocin 500 ml @ 125 mls/hr Q4H ONCE 09/06/25 10:00 09/06/25 13:59 DC Ondansetron HCl (Zofran) 4 mg Q6HPRN PRN 09/06/25 11:30 09/06/25 11:33 4 MG Naloxone HCl (Narcan) 0.2 mg PRN ONCE 09/06/25 19:45 09/06/25 19:52 DC Ephedrine Sulfate (ePHEDrine SULFATE) 10 mg PRN ONCE 09/06/25 19:45 09/06/25 19:52 DC Fentanyl Citrate 100 mcg ONCE ONCE 09/06/25 19:45 09/06/25 19:52 DC 09/06/25 22:30 100 MCG Lidocaine HCl (Xylocaine-Pf 2% Injection) 10 ml ONCE ONCE 09/06/25 19:45 09/06/25 19:52 DC Lactated Ringer's 1,000 ml @ 1,000 mls/hr Q1H ONCE 09/06/25 19:45 09/06/25 20:44 DC 09/06/25 22:30 1,000 MLS/HR Oxytocin 1,000 ml @ 6 ml/hr Q24H 09/06/25 22:45 Terbutaline Sulfate (Brethine Inj) 0.25 mg ONCE PRN 09/06/25 22:45 Laboratory Tests Test 09/06/25 08:45 09/06/25 08:00 Range/Units White Blood Count 7.3 4.4-10.8 10^3/uL Red Blood Count 3.69 L 4.0-5.20 10^6/uL Hemoglobin 10.6 L 12.2-16.2 g/dL Hematocrit 32.4 L 36.0-46.0 % Mean Corpuscular Volume 87.9 80.0-100.0 fL Mean Corpuscular Hemoglobin 28.8 28.0-32.0 pg Mean Corpuscular Hemoglobin Concent 32.7 32.0-36.0 g/dL Red Cell Distribution Width 13.3 11.8-14.3 % Platelet Count 237 140-450 10^3/uL Mean Platelet Volume 8.8 6.9-10.8 fL Neutrophils (%) (Auto) 68.2 37.0-80.0 % Lymphocytes (%) (Auto) 25.9 10.0-50.0 % Monocytes (%) (Auto) 5.0 0.0-12.0 % Eosinophils (%) (Auto) 0.4 0.0-7.0 % Basophils (%) (Auto) 0.5 0.0-2.0 % Neutrophils # (Auto) 5.0 1.6-8.6 10 ^3/uL Lymphocytes # (Auto) 1.9 0.4-5.4 10 ^3/uL Monocytes # (Auto) 0.4 0-1.3 10 ^3/uL Eosinophils # (Auto) 0 0-0.8 10 ^3/uL Basophils # (Auto) 0 0-0.2 10 ^3/uL Nucleated Red Blood Cells 0.1 % Prothrombin Time 9.7 9.3-11.8 sec Prothrombin Time INR 0.91 0.9-1.15 Activated Partial Thromboplast Time 25.4 24.5-34.5 SEC Sodium Level 138 136-145 mmol/L Potassium Level 4.0 3.5-5.1 mmol/L Chloride Level 107 98-107 mmol/L Carbon Dioxide Level 21 20-31 mmol/L Anion Gap 10 5-15 Blood Urea Nitrogen 7 L 9-23 mg/dL Creatinine 0.63 0.550-1.02 mg/dL Glomerular Filtration Rate Calc 125 >90 mL/min BUN/Creatinine Ratio 11.1 10.0-20.0 Serum Glucose 82 74-106 mg/dL Calcium Level 8.9 8.7-10.4 mg/dL Total Bilirubin 0.4 0.2-1.0 mg/dL Aspartate Amino Transferase (AST) 22 13-40 U/L Alanine Aminotransferase (ALT) 17 7-40 U/L Alkaline Phosphatase 219 H 46-116 U/L Total Protein 6.4 5.7-8.2 g/dL Albumin 3.6 3.2-4.8 g/dL Treponema pallidum Antibody Non-reactive Negative Hepatitis C Antibody Negative Negative Urine Color Colorless Yellow Urine Clarity Turbid H Clear Urine pH 6.5 5.0-9.0 Urine Specific [place] 1.020 1.001-1.035 Urine Protein Trace H Negative Urine Ketones Negative Negative Urine Blood Trace H Negative /uL Urine Nitrite Negative Negative Urine Bilirubin Negative Negative Urine Urobilinogen Normal Negative mg/dL Urine Leukocyte Esterase 3+ Negative /uL Urine RBC 5 0 - 4 /hpf Urine Microscopic WBC 160 H 0-5 /HPF Urine Squamous Epithelial Cells Mod <5 /hpf Urine Bacteria Mod H None Seen /hpf Urine Mucus Few None Seen Urine Glucose Normal Normal mg/dL Urine Opiates Screen Neg NEGATIVE Urine Fentanyl Screen Neg NEGATIVE Urine Barbiturates Screen Neg NEGATIVE Urine Phencyclidine Screen Neg NEGATIVE Urine Amphetamines Screen Neg NEGATIVE Urine Benzodiazepines Screen Neg NEGATIVE Urine Cocaine Screen Neg NEGATIVE Urine Cannabinoids Screen Neg NEGATIVE Assessment Assessment A: 25yo IUP@40.1wks Induction of Labor for term Category I EFM Intact Membranes GBS negative Plan Plan Start IV pitocin per order when UCs space out monitoring per order Frequent position changes in bed encouraged Limit SVE unless necessary Intrauterine resuscitation PRN Anticipate Plan discussed with: Patient, Spouse, Other (family) Visit Coding OBGYN Date of Service: Sep 06, 2025 Billing Provider: MARIE POPE CNM [employer] Common Visit Codes: [id number] INP/OBS CARE(MOD) MARIE POPE CNM Sep 06, 2025 23:56
[2025-09-07] MEDS: LIDOCAINE HCL 2 %PF INJ 10ML AMP IJ ONE (00:12)
[2025-09-07] MEDS: LACT. RINGERS/OXYTOCIN 20UNITS 1,000 ML IV SCH (02:18)
[2025-09-07] MEDS: METHYLERGONOVINE MALEATE 0.2 MG/ML AMP IM ONE ×2 (05:01)
[2025-09-07] MEDS: LACT. RINGERS/OXYTOCIN 20UNITS 500 ML IV ONE ×4 (06:10→19:47)
[2025-09-07] MEDS: ceFAZolin 2 GM/D5W50ml 50 ML IV ONE (06:14)
--- NOTE | 2025-09-07 06:29 | LDN2 ---
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 Modified ritgen manuever done to deliver head due to deceleration. APGARS 9/9. IDALIA and loose Nuchal x1 with cord reduced before . Cord clamped and cut after 1 minute delay. handed to mom/RN team. Cord blood sent. Intact 3-vessel cord placenta delivered spontaneously, Marc. Fundus boggy at U, moderate lochia, fundal massage done. Manual sweep done and uterus cleared of all clots. IM methergine given. Ancef 2g IVPB x1. Patient had epidural. Cervix/vagina inspected and right labial laceration present which was repaired with 3-0 vicryl suture. VSS. Fundus firm at U, midline, light lochia. QBL 450ml. Patient to care and baby to couplet care. Visit Coding OBGYN Date of Service: Sep 07, 2025 Billing Provider: MARIE POPE CNM [employer] MANAGER Common Visit Codes: PROCEDURE ONLY CASH MANAGER Procedure Codes: [id number] DEL INCLUDING AGUILAR HUFF STUDENTMDW Sep 07, 2025 06:29
[2025-09-07] MEDS ORDERED: ONDANSETRON ODT 4 MG TAB PO PRN (06:30)
[2025-09-07 07:00] VITALS: BP 109/59; PULSE 58; RESP 16; TEMP 98; O2SAT 98
[2025-09-07] MEDS: ACETAMINOPHEN 325 MG TAB PO PRN (07:02)
[2025-09-07] MEDS ORDERED: ACETAMINOPHEN IV 1000 MG/100ML (10MG/ML) IV PRN (08:00)
[2025-09-07] MEDS: ONDANSETRON HCL 4 MG/2 ML VIAL IV PRN (08:29)
[2025-09-07 11:00] VITALS: BP 107/72; PULSE 59; RESP 17; TEMP 97.9; O2SAT 96
[2025-09-07] MEDS: IBUPROFEN 600 MG TAB PO PRN (11:17)
[2025-09-07 14:43] VITALS: BP 104/51; PULSE 66; RESP 16; TEMP 98.1; O2SAT 96
[2025-09-07 19:00] VITALS: BP 107/58; PULSE 63; RESP 16; TEMP 97.9; O2SAT 97
[2025-09-07] MEDS ORDERED: DOCU-265 PO (20:53)
[2025-09-07] MEDS ORDERED: IBU600T PO (20:53)
[2025-09-07] MEDS ORDERED: PREN-96 PO (20:53)
[2025-09-07] MEDS: DOCUSATE SOD 100 MG CAP PO SCH (22:11)
[2025-09-07 22:30] VITALS: BP 105/53; PULSE 67; RESP 16; TEMP 97.9; O2SAT 97
[2025-09-08 03:00] VITALS: BP 108/54; PULSE 77; RESP 16; TEMP 98.1; O2SAT 98
[2025-09-08 07:00] VITALS: BP 106/63; PULSE 71; RESP 16; TEMP 97.9; O2SAT 97
--- NOTE | 2025-09-08 07:06 | DVHDS2 ---
Obstetrics Discharge Summary Obstetrics Discharge Summary Date of Admission: Sep 06, 2025 Date of Discharge: Sep 08, 2025 Reason For Admission: Induction of Labor Procedures: NST Intrapartum Procedures: Spontaneous vaginal deliv Procedures: Hct/date: (09/08/25), Hgb/date: (09/08/25) Operative Complicat: Laceration (right labial) Discharge Diagnosis: Term -Delivered Discharge Information: Activity ( as tolerated, no heavy lifting and nothing in the vagina for 6 weeks), Diet (Regular), Medications (Rx sent to pharmacy), Instructions ( precautions and preeclampsia warning signs reviewed), Discharge to (Home), Accompanied by (PARTNER), Discarge date (09/08/2025) Visit Coding OBGYN Date of Service: Sep 08, 2025 Billing Provider: MARIE POPE CNM [employer] Common Visit Codes: [id number] DISCH DAY <30MIN AGUILAR HUFF STUDENTMDW Sep 08, 2025 07:06
--- NOTE | 2025-09-08 07:09 | DVHPN2 ---
Progress Note Date Seen: Sep 08, 2025 Subjective S: bleeding is less, eating food without issues, denies lightheaded/dizziness, pain well controlled with oral medications, no concerns with urinating, passing flatus, no BM yet, ambulating well, bottle feeding well. vital signs VSS See cpn Vital Sign Date Time Temp Pulse Resp B/P (MAP) Pulse Ox O2 Delivery O2 Flow Rate FiO2 09/08/25 03:00 98.1 77 16 108/54 (72) 98 98.1 09/07/25 18:44 Room Air 09/07/25 08:44 0.0 Total Intake and Output 09/07/25 09/07/25 09/08/25 14:59 22:59 06:59 Output Total 1250 ml 950 ml Balance -1250 ml -950 ml medications Current Medications Medications Dose Ordered Sig/Jocelynn Route Start Time Stop Time Status Last Admin Dose Admin Niya Santana 1 pad PRN PRN TOP 09/06/25 08:15 09/06/25 09:58 1 PAD Sodium Lauryl Sulfate 240 ml PRN PRN TOP 09/06/25 08:15 09/06/25 09:58 240 ML Benzocaine 1 applic PRN PRN TOP 09/06/25 08:15 09/06/25 09:59 1 APPLIC Butorphanol Tartrate 1 mg Q4HPRN PRN IV 09/06/25 08:15 Cancel Butorphanol Tartrate 2 mg Q4HPRN PRN IV 09/06/25 08:15 Cancel Lidocaine HCl 20 ml ONCE PRN IJ 09/06/25 08:15 Cancel Terbutaline Sulfate 0.25 mg ONCE PRN SC 09/06/25 22:45 Cancel Ibuprofen 600 mg Q6HP PRN PO 09/07/25 06:30 09/08/25 03:37 600 MG Acetaminophen 650 mg Q4HP PRN PO 09/07/25 06:30 09/07/25 16:00 650 MG Ondansetron HCl 4 mg Q4HPRN PRN PO 09/07/25 06:30 Hold Docusate Sodium 200 mg HS PO 09/07/25 22:00 09/07/25 22:11 200 MG Ondansetron HCl 4 mg Q4HPRN PRN IV 09/07/25 08:00 09/07/25 08:29 4 MG laboratory and microbiology Laboratory Tests 09/06/25 08:45 Test 09/06/25 08:45 Range/Units Serum Glucose 82 74-106 mg/dL Objective O: VSS Chest: heart sounds normal and lung sounds clear bilaterally Abd: soft, non-tender, fundus at U/firm/midline, active bowel sounds, no rebound or guarding Perineum: sutures intact, edges well approximated, mild edema noted, no erythema noted Ext: Non-tender, No edema, 2+ BLE DTRs Lochia: minimal See lab result Problems(with codes): (1) (normal spontaneous vaginal delivery) (2) Obstetric labial laceration, delivered, current hospitalization Assessment/Plan A: 25yo now PPD#1 s/p Rh+ Rubella Immune bottle feeding well Pain control with PO medications Bowel regimen P: D/C home today Rx sent to pharmacy precautions and preeclampsia warning signs reviewed F/U with [facility] OB office in 2 weeks Plan discussed with: Patient, Spouse, Other (family) Fluid Accumulation (N/A): N/A Reduced Die Engraver Strength (Non-Sev: N/A AGUILAR HUFF STUDENTMDW Sep 08, 2025 07:09
[2025-09-08 07:59] LABS: Hematocrit 28.2 % (36.0-46.0); Hemoglobin 9.2 g/dL (12.2-16.2); Mean Corpuscular Hemoglobin 29.0 pg (28.0-32.0); Mean Corpuscular Volume 88.4 fL (80.0-100.0); Nucleated Red Blood Cells % 0.1 %
[2025-09-08] MEDS ORDERED: TETANUS-DIPTH-ACEL PERTUSSIS 0.5ML SYR Tdap IM ONE (09:00)
[2025-09-08] MEDS ORDERED: FER325T PO (09:08)
[2025-09-09] MEDS ORDERED: NITR-87 PO (03:58)
== END 2025-09-08 10:15 | disposition home or self-care (01) | DRG 560 ==
LOC: LDRP 07:52
PROVIDERS: ADMIT Obstetrics & Gynecology; ATTEND Obstetrics & Gynecology
PROC: 3E0R3BZ Introduction of Anesthetic Agent into Spinal Canal, Percutaneous Approach (ICD-10-PCS; 2025-09-06)
PROC: 00HU33Z Insertion of Infusion Device into Spinal Canal, Percutaneous Approach (ICD-10-PCS; 2025-09-06)
PROC: 10E0XZZ Delivery of Products of Conception, External Approach (ICD-10-PCS; principal; 2025-09-07)
PROC: 0HQ9XZZ Repair Perineum Skin, External Approach (ICD-10-PCS; 2025-09-07)
DX: O48.0 Post-term pregnancy (principal); Z37.0 Single live birth; O69.81X0 Labor and delivery complicated by cord around neck, without compression, not applicable or unspecified; O70.0 First degree perineal laceration during delivery; Z3A.40 40 weeks gestation of pregnancy
CPT/HCPCS: 36415; 59409; 62282; 80053; 80307; 81001; 85025; 85610; 85730; 86780; 86803; 86850; 86900; 86901; 90471; 94760; 94762; 96360; 96361; 96365; 96366; 96374; 96375; G0378; J0131; J2405; J2590

== ENCOUNTER 2025-09-09 01:07 | Emergency (ER) | payer MEDICAID ==
[~2025-09-09] VITALS: Ht 165.1 cm; Wt 68.0 kg
[~2025-09-09 01:07] MED LIST changes: +DOCU-265 PO; +FER325T PO; +IBU600T PO; -NITR-87 PO
--- NOTE | 2025-09-09 01:33 | ED.PDOC ---
History of Present Illness HPI Comments 25-year-old female who came to ER for headaches. Patient has recently given 12 hours ago via vaginal delivery with the epidural anesthesia. After giving patient has been experiencing severe headaches associated nausea. Patient took Tylenol and caffeine but offered no relief of the headaches. REVIEW OF SYSTEMS: General: No fever, no chills, or fatigue HEENT: No sore throat, no earache, no congestion, no neck pain. Cardiac: No chest pain. No palpitations. Lungs: No shortness of breath, no cough. GI: (+) nausea, no vomiting, no diarrhea, no constipation, no abdominal pain : No dysuria, frequency, or urgency. No hematuria. Musculoskeletal: No joint pain , no joint swelling, no extremity edema. Skin: No rash, no itching. Neuro: (+) headache, no dizziness, no weakness EXAM: General: Awake, alert and oriented. No acute distress. Skin: Skin in warm, dry and intact. Appropriate color for ethnicity. HEENT: The head is normocephalic and atraumatic. Conjunctivae are clear without exudates or hemorrhage. Sclera is non-icteric. EOM are intact. No signs of nystagmus. Eyelids are normal in appearance without swelling or lesions. Oral mucosa is pink and moist. PERRLA Neck: The neck is supple with normal range of motion. No JVD. Cardiac: Heart rate and rhythm are normal. No murmurs, gallops, or rubs are auscultated. Respiratory: No signs of respiratory distress. Lung sounds are clear in all lobes bilaterally without rales, rhonchi, or wheezes. Abdominal: Abdomen is soft, non-tender without distention. Bowel sounds are present and normoactive in all four quadrants. Extremities: Upper and lower extremities are atraumatic in appearance without deformity or edema. Neurological: The patient is awake, alert and oriented to person, place, and time with normal speech. Speech is clear. There is no facial asymmetry. Psychiatric: Appropriate mood and affect. Good judgement and insight Chief Complaint: Headache Time Seen by MD: 01:32 Primary Care Provider: TRINA SALCIDO Reviewed Notes: Nurses Notes Allergies: Coded Allergies: NO KNOWN ALLERGIES (Unverified , 03/11/12) Home Meds Active Scripts Ferrous Sulfate (FERROUS SULFATE) 325 Mg Tb, 1 TAB PO DAILY, #30 TAB 3 Refills Prov:MARIE POPE 09/08/25 Ibuprofen Micronized (MOTRIN TABLET) 600 Mg Tb, 600 MG PO Q6HP PRN for 20 Days, #80 TAB Prov:MARIE POPE 09/07/25 Docusate Sodium (Docusate Sodium) 100 Mg Cap, 200 MG PO HS PRN for 30 Days, #60 CAP 2 Refills Prov:MARIE POPE 09/07/25 Vit W/ Ferrous Fumara ( One Daily) Daily Tab, 1 TAB PO DAILY, #90 TAB 3 Refills Prov:MARIE POPE [facility] 09/07/25 Discontinued Reported Medications Nitrofurantoin Monohydrate Mac (Macrobid) 100 Mg Cap, 100 MG PO BID for 7 Days, CAP 07/28/25 Information Source: Patient Mode of Arrival: Wheelchair Past Medical History PAST MEDICAL HISTORY: Denies Surgical History: Denies all surgeries 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 Was a procedure done?: No Differential Dx Considerations may include: Migraine headaches, electrolyte imbalance X-Ray, Labs, Meds, VS Vital Signs Date Time Temp Pulse Resp B/P (MAP) Pulse Ox O2 Delivery O2 Flow Rate FiO2 09/09/25 03:05 98.7 66 20 118/74 (89) 97 98.7 09/09/25 02:21 Room Air* 0 21 09/09/25 01:11 97.8 68 18 117/62 98 97.8 Lab Test 09/09/25 01:38 Range/Units White Blood Count 8.3 4.4-10.8 10^3/uL Red Blood Count 3.17 L 4.0-5.20 10^6/uL Hemoglobin 9.0 L 12.2-16.2 g/dL Hematocrit 28.0 L 36.0-46.0 % Mean Corpuscular Volume 88.3 80.0-100.0 fL Mean Corpuscular Hemoglobin 28.4 28.0-32.0 pg Mean Corpuscular Hemoglobin Concent 32.2 32.0-36.0 g/dL Red Cell Distribution Width 13.5 11.8-14.3 % Platelet Count 257 140-450 10^3/uL Mean Platelet Volume 8.4 6.9-10.8 fL Neutrophils (%) (Auto) 65.1 37.0-80.0 % Lymphocytes (%) (Auto) 29.0 10.0-50.0 % Monocytes (%) (Auto) 5.2 0.0-12.0 % Eosinophils (%) (Auto) 0.3 0.0-7.0 % Basophils (%) (Auto) 0.4 0.0-2.0 % Neutrophils # (Auto) 5.4 1.6-8.6 10 ^3/uL Lymphocytes # (Auto) 2.4 0.4-5.4 10 ^3/uL Monocytes # (Auto) 0.4 0-1.3 10 ^3/uL Eosinophils # (Auto) 0 0-0.8 10 ^3/uL Basophils # (Auto) 0 0-0.2 10 ^3/uL Nucleated Red Blood Cells 0.1 % Sodium Level 143 # 136-145 mmol/L Potassium Level 3.8 3.5-5.1 mmol/L Chloride Level 110 H 98-107 mmol/L Carbon Dioxide Level 23 20-31 mmol/L Anion Gap 10 5-15 Blood Urea Nitrogen < 5 L 9-23 mg/dL Creatinine 0.54 L 0.550-1.02 mg/dL Glomerular Filtration Rate Calc 130 >90 mL/min BUN/Creatinine Ratio 9.3 L 10.0-20.0 Serum Glucose 90 74-106 mg/dL Calcium Level 8.7 8.7-10.4 mg/dL Magnesium Level 1.6 1.6-2.6 mg/dL Current Medications Medications (Trade) Dose Ordered Sig/Jocelynn Route Start Time Stop Time Status Last Admin Lactated Ringer's 2,000 ml @ 1,000 mls/hr Q2H ONCE IV 09/09/25 01:30 09/09/25 03:29 DC 09/09/25 02:17 Ketorolac Tromethamine (Toradol Injection) 30 mg ONCE ONCE IV 09/09/25 01:30 09/09/25 01:32 DC 09/09/25 02:09 Diphenhydramine HCl (Benadryl Injection) 25 mg ONCE ONCE IV 09/09/25 01:30 09/09/25 01:32 DC 09/09/25 02:09 Metoclopramide HCl (Reglan Injection) 10 mg ONCE ONCE IV 09/09/25 01:30 09/09/25 01:32 DC 09/09/25 02:09 Acetaminophen (Ofirmev) 1,000 mg ONCE ONCE IV 09/09/25 02:45 09/09/25 02:46 DC 09/09/25 03:23 Time of 1ST Reevaluation: 01:30 Reevaluation 1ST: Unchanged Patient Education/Counseling: Need For Follow Up Family Education/Counseling: No Family Present SEPSIS Sepsis Screen Date sepsis recognized/suspect: Sep 09, 2025 Time Sepsis recognized/suspect: 011 Recent Procedure: No On Antibiotic Therapy: No Respiratory Rate >20: No Heart Rate >90: No Temp<36 C (96.8 F) or >38.3 C: No SBP <90 or MAP <65 mmHG: No New Acute Mental Status Change: No Is the patient on CPAP, BIPAP,: No Vital Signs Date Time Temp Pulse Resp B/P (MAP) Pulse Ox O2 Delivery O2 Flow Rate FiO2 09/09/25 03:05 98.7 66 20 118/74 (89) 97 98.7 09/09/25 02:21 Room Air* 0 21 09/09/25 01:11 97.8 68 18 117/62 98 97.8 Laboratory Tests Test 09/09/25 01:38 White Blood Count 8.3 10^3/uL (4.4-10.8) Departure 1 Departure Time of Disposition: 03:47 Impression: Primary Impression: Headache Disposition: 01 HOME / SELF CARE / HOMELESS Condition: Stable Written Prescriptions ED DISCHARGE INSTRUCTIONS Instructions: Please read all instructions provided in this packet carefully. Although you have been discharged from the Emergency Department, this does not mean that you have a "clean bill of health". No definitive diagnosis for your symptoms has been made today. It is possible that you are in the process of developing a serious illness. This is why you must return to the ED without fail if any new or worsening symptoms (especially if your symptoms include chest pain, trouble breathing, abdominal pain, fever, headache, confusion, trouble seeing, or trouble walking) It is also very important that you see a primary care provider (PCP) within the next 3-5 days to follow up. If you are unable to get an appointment, return to the ED for re-evaluation. Overview Headaches have many possible causes. Most headaches aren't a sign of a more serious problem, and they will get better on their own. Home treatment may help you feel better faster. The doctor has checked you carefully, but problems can develop later. If you notice any problems or new symptoms, get medical treatment right away. Follow-up care is a mccullough part of your treatment and safety. Be sure to make and go to all appointments, and call your doctor if you are having problems. It's also a good idea to know your test results and keep a list of the medicines you take. How can you care for yourself at home? Rest in a quiet, dark room until your headache is gone. Close your eyes and try to relax or go to sleep. Don't watch TV or read. Put a cold, moist cloth or cold pack on the painful area for 10 to 20 minutes at a time. Put a thin cloth between the cold pack and your skin. Use a warm, moist towel or a heating pad set on low to relax tight shoulder and neck muscles. Have someone gently massage your neck and shoulders. Take pain medicines exactly as directed. If the doctor gave you a prescription medicine for pain, take it as prescribed. If you are not taking a prescription pain medicine, ask your doctor if you can take an osla-mzo-serarvo medicine. Do not ignore new symptoms that occur with a headache, such as a fever, weakness or numbness, vision changes, or confusion. These may be signs of a more serious problem. To prevent headaches Keep a headache diary so you can figure out what triggers your headaches. Avoiding triggers may help you prevent headaches. Record when each headache began, how long it lasted, and what the pain was like (throbbing, aching, stabbing, or dull). Write down any other symptoms you had with the headache, such as nausea, flashing lights or dark spots, or sensitivity to bright light or loud noise. Note if the headache occurred near your period. List anything that might have triggered the headache, such as certain foods (chocolate, cheese, wine) or odors, smoke, bright light, stress, or lack of sleep. Find healthy ways to deal with stress. Headaches are most common during or right after stressful times. Take time to relax before and after you do something that has caused a headache in the past. Try to keep your muscles relaxed by keeping good posture. Check your jaw, face, neck, and shoulder muscles for tension, and try relaxing them. When sitting at a desk, change positions often, and stretch for 30 seconds each hour. Get plenty of sleep and exercise. Eat regularly. Long periods without food can trigger a headache. Limit caffeine by not drinking too much coffee, tea, or soda. But don't quit caffeine suddenly, because that can also give you headaches. Reduce eyestrain from computers by blinking frequently and looking away from the computer screen every so often. Make sure you have proper eyewear and that your monitor is set up properly, about an arm's length away. When should you call for help? Call 911 anytime you think you may need emergency care. For example, call if: You have signs of a stroke. These may include: Sudden numbness, paralysis, or weakness in your face, arm, or leg, especially on only one side of your body. Sudden vision changes. Sudden trouble speaking. Sudden confusion or trouble understanding simple statements. Sudden problems with walking or balance. A sudden, severe headache that is different from past headaches. Call your doctor now or seek immediate medical care if: You have a fever and a stiff neck. You have new nausea and vomiting, or you cannot keep down food or fluids. Your headache gets much worse. Watch closely for changes in your health, and be sure to contact your doctor if: Your headaches get worse, happen more often, or change in some way. You have new symptoms. Your life is disrupted by your headaches. For example, you often miss work, school, or other activities. You do not get better as expected. Comments 25-year-old female presents with headache. No focal neurological symptoms. Neuro exam is benign. Pt is nontoxic. VSS. Symptoms improved with treatment in the emergency department. Based on history and normal neurological exam I have low suspicion for intracranial tumor, intracranial bleed, meningitis, temporal arteritis, glaucoma, CO poisoning. Most likely patient has benign headache, recommend rest, hydration, and OTC pain control. Critical Care Note Critical Care Time?: No Stability Stability form required: No Heart Score Heart Score: Heart Score Response (Comments) Value History N/A 0 EKG N/A 0 Age N/A 0 Risk Factors N/A 0 Troponin N/A 0 Total 0 I personally scribed for VALENCIA GUARDADO MD ([email or web address]) on 09/09/25 at 01:33. Electronically submitted by Berto Aguirre ([facility]). VALENCIA GUARDADO MD Sep 09, 2025 01:33
[2025-09-09 02:03] LABS: Hematocrit 28.0 % (36.0-46.0); Hemoglobin 9.0 g/dL (12.2-16.2); Mean Corpuscular Hemoglobin 28.4 pg (28.0-32.0); Mean Corpuscular Volume 88.3 fL (80.0-100.0); Nucleated Red Blood Cells % 0.1 %
[2025-09-09 02:08] LABS: Potassium 3.8 mmol/L (3.5-5.1); Sodium 143 mmol/L (136-145)
[2025-09-09 02:09] LABS: Anion Gap 10 (5-15); Carbon Dioxide 23 mmol/L (20-31)
[2025-09-09] MEDS: diphenhydrAMINE HCL 50 MG/1 ML VL IV ONE (02:09)
[2025-09-09] MEDS: METOCLOPRAMIDE HCL 5MG/ml INJ 2ml VIAL IV ONE (02:09)
[2025-09-09] MEDS: KETOROLAC TROMETH 30 MG/ML 1ML VIAL IV ONE (02:09)
[2025-09-09 02:12] LABS: Calcium 8.7 mg/dL (8.7-10.4); Chloride 110 mmol/L (98-107)
[2025-09-09 02:14] LABS: Glucose 90 mg/dL (74-106)
[2025-09-09] MEDS: LACTATED RINGER'S 2,000 ML IV ONE (02:17)
[2025-09-09 02:23] LABS: BUN/Creatinine Ratio 9.3 (10.0-20.0); Blood Urea Nitrogen < 5 mg/dL (9-23); Magnesium 1.6 mg/dL (1.6-2.6)
[2025-09-09 03:05] VITALS: BP 118/74; PULSE 66; RESP 20; TEMP 98.7; O2SAT 97
[2025-09-09] MEDS: ACETAMINOPHEN IV 1000 MG/100ML (10MG/ML) IV ONE (03:23)
[2025-09-09] MEDS ORDERED: NITR-87 PO (03:58)
== END 2025-09-09 04:40 | disposition home or self-care (01) ==
LOC: ER 01:07
DX: R51.9 Headache, unspecified (principal); Z79.899 Other long term (current) drug therapy
CPT/HCPCS: 36415; 80048; 83735; 85025; 96361; 96374; 96375; 99284; J1200; J1885; J2765; J0131